=== PATIENT | female | born 1975 | race Caucasian/White ===

== ENCOUNTER 2017-06-12 13:38 | Inpatient (IN) | payer OTHER ==
[~2017-06-12] VITALS: Ht 177.8 cm; Wt 60.6 kg
--- NOTE | ~2017-06-12 | EKG ---
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1975 Requested By: Huy Rodriguez Order Number: [id number] MD: Martín Dow Measurements Intervals [place] Rate: 94 P: 68 KS: 165 QRS: -71 QRSD: 84 T: 118 QT: 421 QTc: 527 Interpretive Statements Sinus rhythm Probable left atrial enlargement Left anterior fascicular block Low voltage, precordial leads Consider right ventricular hypertrophy Nonspecific T abnormalities, lateral leads Electronically Signed On 06-18-2017 13:55:49 CDT by Martín Dow [email or web address] <ELECTRONICALLY SIGNED> By: Martín Dow MD 06/18/17 2690 0944 0944 Martín Dow MD /LACHELLE
--- NOTE | ~2017-06-12 | EKG ---
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1975 Requested By: Huy Rodriguez Order Number: [id number] MD: Javier Paul Measurements Intervals [place] Rate: 92 P: 30 DC: 152 QRS: -71 QRSD: 90 T: QT: 429 QTc: 531 Interpretive Statements Sinus rhythm Left anterior fascicular block Borderline low voltage, extremity leads Abnormal R-wave progression, early transition Probable anteroseptal infarct, old Nonspecific T abnormalities, lateral leads Prolonged QT interval Compared to ECG 06/18/2017 09:44:57 No significant change was found Electronically Signed On 06-19-2017 7:43:31 CDT by Javier Paul [email or web address] <ELECTRONICALLY SIGNED> By: Javier Paul MD, [facility] 06/19/17 0743 0609 0609 Javier Paul MD, FAC /EPI
--- NOTE | ~2017-06-12 | CATHLAB ---
[facility] [employer] [place] [address] INVASIVE PROCEDURE REPORT Name: LAKESHA SHARMA Room #: 216-P DIS IN [facility]#: [id number] Admission: 06/12/17 Attend Phys: Parth Urbina MD Discharge: 06/19/17 Date of : 79 Date of Service: 06/19/17 1720 Report #: [id number] THIS REPORT FOR: //name// APPROVED REPORT Study performed: 06/18/2017 07:01:44 Patient Details Patient Status: In-Patient Room #: The patient is a 41 year-old female Event Personnel Huy Rodriguez Lap Welder, Cynthia Adams RN RN, Cecil Lopez Monitor, Nubia Recinos RTR, TAX MANAGER CPA Scrub Procedures Performed Right and Left Heart Cath w/or w/o Coronarie [id number] [facility] Indication Cardiomyopathy Procedure Narrative The Right Groin^ was infiltrated with 1% Lidocaine subcutaneous anesthesia. A PINNACLE 6FR Sheath #[id number] sheath was inserted into the . Coronary angiography was performed using coronary diagnostic catheters. The right coronary system was accessed and visualized with a JR4 catheter. The left coronary system was accessed and visualized with a JL4 catheter. The left ventricle was accessed and visualized with a PIGTAIL catheter. Left ventriculogram was performed in MATOS and PILY projection. Closure device was deployed with a 6 Fr MYNXGRIP 6/7F #[id number]. There was no hematoma. Intraoperative Conscious Sedation Sedation start time: 7.54 Case end Time: 8.10 Versed 0.5 mg Fluoro Time: 2.25 minutes Dose: 1.43 mGy Contrast Type and Amount: Visipaque 95 ml Hemodynamics The right atrial mean pressure is 17 mmHg. The right ventricular pressure is 40/10 mmHg. The pulmonary artery pressure is 44/17 mmHg [facility] [address] [place] [address] INVASIVE PROCEDURE REPORT Name: LAKESHA SHARMA Room #: 216-P [facility] IN M.R.#: [id number] Admission: 06/12/17 Attend Phys: Parth Urbina MD Discharge: 06/19/17 Date of : 79 Date of Service: 06/19/17 1720 Report #: [id number] with a mean of 29 mmHg. The mean pulmonary capillary wedge pressure is 18 mmHg. The aortic pressure is 86/56 mmHg with a mean of mmHg. The left ventricular pressure is 85/14 mmHg with a mean of mmHg. The left ventricular end diastolic pressure is 29 mmHg. Conclusion #1 left main giving rise to LAD and circumflex #2 LAD extends to the apex with mild irregularities. #3 ostial circumflex lesion of 50% nondominant vessel otherwise well-preserved #4 dominant right coronary artery with no occlusive disease #5 borderline left ventricular dilatation with moderately severe global hypokinesis EF 20% range #6 successful right heart catheterization with mild pulmonary pressure wedge pressure elevation as noted above. Cardiac output cardiac index markedly depressed Recommendations and plan or continue aggressive risk factor modification aggressive volume fluid control sodium restriction continue current medications. Close follow-up is indicated <ELECTRONICALLY SIGNED> By: Huy Rodriguez MD, FACC 06/19/17 172 19 19 Huy Rodriguez MD, FACC /INF
--- NOTE | ~2017-06-12 | 2DMMODE ---
[facility] [address] [employer] [place] [address] 2 D/M-MODE ECHOCARDIOGRAM Name: ZACHARYLAKESHA Room #: 216-P [facility] IN ..#: [id number] Admission: 06/12/17 Attend Phys: Parth Urbina MD Discharge: Date of : 79 Date of Service: 06/18/17 1045 Report #: [id number] THIS REPORT FOR: //name// APPROVED REPORT Study performed: 06/18/2017 09:40:41 EXAM: Comprehensive 2D, Doppler, and color-flow Echocardiogram Patient Location: Bedside Room #: 216 Status: routine BSA: 1.74 HR: 93 bpm BP: 85/56 mmHg Rhythm: NSR/PVCs Other Information Study Quality: Adequate/unable to position patient. On bed rest status post Cath. Indications Short of breath. 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 2D Dimensions RVDd: 40.91 mm LVEF(%): 17.64 (>50%) IVSd: 8.81 (7-11mm) LVOT Diam: 20.08 (18-24mm) LVDd: 56.99 mm PWd: 9.44 (7-11mm) Ascending Ao: 26.46 (22-36mm) LVDs: 52.39 (25-40mm) Aortic Root: 30.63 mm Mcelroy's LVEF: 17.64 % Volumes Left Atrial Volume (Systole) Single Plane 4CH: 62.20 mL Aortic Valve AoV Peak Jose.: 0.86 m/s AO Peak Gr.: 2.99 mmHg LVOT Max P.98 mmHg LVOT Max V: 0.50 m/s ANTONIETA Vmax: 1.81 cm2 Mitral Valve MV Decel. Time: 125.54 ms MV E Max Jose.: 0.81 m/s [facility] [place] [address] 2 D/M-MODE ECHOCARDIOGRAM Name: LAKESHA SHARMA Room #: 216-P [facility] IN .R.#: [id number] Admission: 06/12/17 Attend Phys: Parth Urbina MD Discharge: Date of : 79 Date of Service: 06/18/17 1045 Report #: [id number] Pulmonary Valve PV Peak Jose.: 0.50 m/s PV Peak Gr.: 1.00 mmHg Tricuspid Valve TR Peak Jose.: 2.69 m/s RAP Estimate: 5.00 mmHg TR Peak Gr.: 29.04 mmHg PA Pressure: 34.00 mmHg Left Ventricle Left ventricle is at the upper limits of normal. There is normal left ventricular wall thickness. Left ventricular systolic function is severely decreased. LVEF is 20%. This study is not technically sufficient to allow evaluation of the LV diastolic function. Right Ventricle The right ventricle is normal size. Right ventricle is hypokinetic. Atria Left atrium is mildly dilated. Right atrium is mildly dilated. Aortic Valve Aortic valve is trileaflet. No aortic regurgitation is present. There is no aortic valvular stenosis. Mitral Valve The mitral valve is normal in structure. Mild to moderate mitral regurgitation. Tricuspid Valve The tricuspid valve is normal in structure. Mild to moderate tricuspid regurgitation. Estimated PAP is 35mmHg. Pulmonic Valve The pulmonary valve is normal in structure. Mild pulmonic regurgitation. Great Vessels The aortic root is normal in size. The ascending aorta is normal in size. IVC is normal in size and collapses >50% with inspiration. Pericardium Small pericardial effusion noted. Right pleural effusion [facility] [address] [place] [address] 2 D/M-MODE ECHOCARDIOGRAM Name: LAKESHA SHARMA Room #: 216-P [facility] IN ..#: [id number] Admission: 06/12/17 Attend Phys: Parth Urbina MD Discharge: Date of : 79 Date of Service: 06/18/17 1045 Report #: [id number] noted. <Conclusion> Left ventricle is at the upper limits of normal. Left ventricular systolic function is severely decreased. LVEF is 20%. This study is not technically sufficient to allow evaluation of the LV diastolic function. The right ventricle is normal size. Left atrium is mildly dilated. Right atrium is mildly dilated. Left atrium is mildly dilated. Right atrium is mildly dilated. Aortic valve is trileaflet. Mild to moderate mitral regurgitation. Mild to moderate tricuspid regurgitation. Estimated PAP is 35mmHg. The aortic root is normal in size. Small pericardial effusion noted. <ELECTRONICALLY SIGNED> By: Huy Rodriguez MD, [facility] 06/18/17 1045 1045 1045 Huy Rodriguez MD, FACC /INF
--- NOTE | ~2017-06-12 | EKG ---
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
[2017-06-12 14:10] VITALS: BP 124/94
[2017-06-12 14:16] LABS: ABSOLUTE NEUTROPHILS 7.5 thou/uL (1.4-8.2); BASOPHILS 1.4 % (0.0-2.0); EOSINOPHILS 0.1 % (0.0-3.0); HEMATOCRIT 27.8 % (37.0-47.0); HEMOGLOBIN 8.9 gm/dL (12.0-15.0); MCH 29.7 pg (26.0-34.0); MCHC 31.9 g/dL (28.0-37.0); MCV 93.1 fL (80.0-100.0); MONOCYTES 4.5 % (1.0-8.0); PLATELET COUNT 539 thou/uL (150-400); RBC 2.99 mil/uL (4.20-5.00); RDW 17.6 % (10.5-14.5); WBC 11.5 thou/uL (4.0-11.0)
[2017-06-12] MEDS ORDERED: LOPRESSOR25 PO (14:24)
[2017-06-12] MEDS ORDERED: ASPIR 8181 MG PO (14:24)
[2017-06-12 14:26] LABS: ANION GAP 12 mmol/L (7-16); BUN 21 mg/dL (7-18); CALCIUM 8.5 mg/dL (8.5-10.1); CHLORIDE 100 mmol/L (98-107); CO2 20 mmol/L (21-32); CREATININE 1.3 mg/dL (0.6-1.0); GLUCOSE 107 mg/dL (74-106); SODIUM 132 mmol/L (136-145)
[2017-06-12 14:35] LABS: ALBUMIN 2.6 g/dL (3.4-5.0); SGOT 47 U/L (15-37); SGPT 61 U/L (30-65); TOTAL BILIRUBIN 1.9 mg/dL (<0.1-1.0); TOTAL PROTEIN 6.4 g/dL (6.4-8.2); TROPONIN-I < 0.04 ng/mL (<0.06)
[2017-06-12 15:53] VITALS: BP 128/93
[2017-06-12 17:05] VITALS: BP 112/89
[2017-06-12 20:24] VITALS: BP 99/67
[2017-06-12 23:13] LABS: URINE BILIRUBIN NEGATIVE (Negative); URINE BLOOD NEGATIVE (Negative); URINE CLARITY CLEAR; URINE COLOR YELLOW; URINE GLUCOSE-RANDOM* NEGATIVE (Negative); URINE KETONES NEGATIVE (Negative); URINE LEUKOCYTES-REFLEX TRACE (Negative); URINE NITRITE-REFLEX NEGATIVE (Negative); URINE PROTEIN (DIPSTICK) NEGATIVE (Negative); URINE UROBILINOGEN 0.2 E.U./dl (0.2-1.0)
[2017-06-12 23:22] LABS: AMP/METHAMP Negative (Negative); BARBITURATES Negative (Negative); BENZODIAZEPINES Negative (Negative); COCAINE Negative (Negative); METHADONE Negative (Negative); OPIATES Negative (Negative); PCP Negative (Negative)
[2017-06-13 02:15] VITALS: BP 99/67
[2017-06-13 04:44] LABS: CREATININE 1.3 mg/dL (0.6-1.0); MAGNESIUM 1.5 mg/dL (1.8-2.4)
[2017-06-13 04:45] LABS: BASOPHILS 1.1 % (0.0-2.0); EOSINOPHILS 0.6 % (0.0-3.0); HEMATOCRIT 24.9 % (37.0-47.0); HEMOGLOBIN 8.1 gm/dL (12.0-15.0); MCH 29.7 pg (26.0-34.0); MCHC 32.5 g/dL (28.0-37.0); MCV 91.4 fL (80.0-100.0); MONOCYTES 5.5 % (1.0-8.0); POLYS 53.8 % (36.0-66.0); RBC 2.72 mil/uL (4.20-5.00); WBC 7.5 thou/uL (4.0-11.0)
[2017-06-13 04:56] LABS: POTASSIUM 2.6 mmol/L (3.5-5.1)
[2017-06-13 05:07] LABS: PLATELET COUNT 442 thou/uL (150-400)
[2017-06-13 05:24] VITALS: BP 111/73
[2017-06-13 07:37] VITALS: BP 113/78
[2017-06-13 11:19] VITALS: BP 109/82
[2017-06-13 15:17] VITALS: BP 104/71
[2017-06-13 20:20] VITALS: BP 100/73
[2017-06-14] VITALS (7 sets, daily range): BP systolic 85–103; BP diastolic 58–73
[2017-06-14 05:27] LABS: CREATININE 1.1 mg/dL (0.6-1.0)
[2017-06-14 05:31] LABS: POTASSIUM 3.2 mmol/L (3.5-5.1)
[2017-06-14 05:49] LABS: HEMATOCRIT 24.3 % (37.0-47.0); MCH 29.8 pg (26.0-34.0); MCHC 32.8 g/dL (28.0-37.0); MCV 90.8 fL (80.0-100.0); RBC 2.67 mil/uL (4.20-5.00); RDW 16.9 % (10.5-14.5); WBC 7.5 thou/uL (4.0-11.0)
[2017-06-15] VITALS (7 sets, daily range): BP systolic 85–110; BP diastolic 58–75
[2017-06-15 04:22] LABS: HEMATOCRIT 25.3 % (37.0-47.0); HEMOGLOBIN 8.3 gm/dL (12.0-15.0); MCV 91.1 fL (80.0-100.0); RBC 2.78 mil/uL (4.20-5.00); RDW 16.9 % (10.5-14.5); WBC 8.1 thou/uL (4.0-11.0)
[2017-06-15 04:30] LABS: CALCIUM 7.8 mg/dL (8.5-10.1); CREATININE 1.1 mg/dL (0.6-1.0); POTASSIUM 3.7 mmol/L (3.5-5.1)
[2017-06-16 04:54] VITALS: BP 101/71
[2017-06-16 07:06] LABS: HEMATOCRIT 30.1 % (37.0-47.0); HEMOGLOBIN 10.1 gm/dL (12.0-15.0); MCH 29.9 pg (26.0-34.0); MCHC 33.6 g/dL (28.0-37.0); MCV 89.1 fL (80.0-100.0); RBC 3.38 mil/uL (4.20-5.00); RDW 16.1 % (10.5-14.5); WBC 6.4 thou/uL (4.0-11.0)
[2017-06-16 07:18] LABS: CREATININE 1.1 mg/dL (0.6-1.0)
[2017-06-16 07:21] LABS: POTASSIUM 2.9 mmol/L (3.5-5.1)
[2017-06-16 07:45] VITALS: BP 101/74
[2017-06-16 11:40] VITALS: BP 102/73
[2017-06-16 15:50] VITALS: BP 74/45
[2017-06-16 20:02] VITALS: BP 82/52
[2017-06-17 03:49] LABS: HEMATOCRIT 30.5 % (37.0-47.0); HEMOGLOBIN 9.9 gm/dL (12.0-15.0); MCH 29.4 pg (26.0-34.0); MCHC 32.5 g/dL (28.0-37.0); MCV 90.6 fL (80.0-100.0); RBC 3.37 mil/uL (4.20-5.00); RDW 15.8 % (10.5-14.5); WBC 7.8 thou/uL (4.0-11.0)
[2017-06-17 03:57] LABS: CALCIUM 7.9 mg/dL (8.5-10.1); CREATININE 1.2 mg/dL (0.6-1.0); POTASSIUM 3.9 mmol/L (3.5-5.1)
[2017-06-17 04:34] VITALS: BP 86/58
[2017-06-17 08:20] VITALS: BP 91/64
[2017-06-17 11:30] VITALS: BP 80/54
[2017-06-17 15:20] VITALS: BP 83/57
[2017-06-17 19:27] VITALS: BP 91/59
[2017-06-18] VITALS (16 sets, daily range): BP systolic 71–120; BP diastolic 45–66
[2017-06-18 07:48] LABS: CALCIUM 7.9 mg/dL (8.5-10.1); CREATININE 1.2 mg/dL (0.6-1.0); POTASSIUM 3.9 mmol/L (3.5-5.1)
[2017-06-18 07:59] LABS: APTT 26.1 Seconds (24.5-32.8); INR 1.2
[2017-06-19] VITALS (7 sets, daily range): BP systolic 77–85; BP diastolic 49–60
[2017-06-19 06:02] LABS: HEMATOCRIT 30.7 % (37.0-47.0); MCH 29.3 pg (26.0-34.0); MCHC 32.7 g/dL (28.0-37.0); MCV 89.6 fL (80.0-100.0); RBC 3.43 mil/uL (4.20-5.00); RDW 16.1 % (10.5-14.5); WBC 7.2 thou/uL (4.0-11.0)
[2017-06-19 06:17] LABS: CREATININE 1.2 mg/dL (0.6-1.0)
[2017-06-19] MEDS ORDERED: CORLANOR5 MG PO (10:47)
[2017-06-19] MEDS ORDERED: COREG6.25 MG PO (10:47)
[2017-06-19] MEDS ORDERED: LISINOPRIL2.5 MG PO (10:48)
[2017-06-19] MEDS ORDERED: SPIRONOLACTONE25 M1 PO (10:48)
[2017-06-19] MEDS ORDERED: LASIX 20 MG TAB20 MG PO (10:48)
== END 2017-06-19 14:19 | disposition home health service (06) | DRG 286 ==
LOC: ER 13:38 → 2N 14:59 → EROBS 14:59 → 2N 16:35 → ENTRNSPT 06-19 13:41 → EDTRNSPTSTS 06-19 13:45 → 2N 06-19 14:19
PROVIDERS: Emergency Medicine; Hospitalist; Internal Medicine Cardiovascular Disease; Nurse Practitioner; Nurse Practitioner Gerontology
DX: I50.23 Acute on chronic systolic (congestive) heart failure (principal); E43 Unspecified severe protein-calorie malnutrition; N17.9 Acute kidney failure, unspecified; I42.9 Cardiomyopathy, unspecified; E46 Unspecified protein-calorie malnutrition; E87.6 Hypokalemia; E83.42 Hypomagnesemia; I08.1 Rheumatic disorders of both mitral and tricuspid valves; I25.10 Atherosclerotic heart disease of native coronary artery without angina pectoris; F10.10 Alcohol abuse, uncomplicated; F41.9 Anxiety disorder, unspecified; D69.6 Thrombocytopenia, unspecified; D64.9 Anemia, unspecified; Z79.82 Long term (current) use of aspirin; Z79.899 Other long term (current) drug therapy; Z90.49 Acquired absence of other specified parts of digestive tract; Z82.49 Family history of ischemic heart disease and other diseases of the circulatory system
CPT/HCPCS: 10081

== ENCOUNTER → 2017-11-02 | Outpatient (CLI) | payer OTHER ==
[~2017-11-02] MED LIST: ASPIR 8181 MG PO; COREG6.25 MG PO; CORLANOR5 MG PO; LASIX 20 MG TAB20 MG PO; LISINOPRIL2.5 MG PO; LOPRESSOR25 PO; SPIRONOLACTONE25 M1 PO
--- NOTE | ~2017-11-02 | 2DMMODE ---
[facility] [place] [place] [address] 2 D/M-MODE ECHOCARDIOGRAM Name: ZACHARYLAKESHA STEVE Room #: REG CL [facility]#: [id number] Admission: 11/02/17 Attend Phys: Huy Rodriguez, Discharge: Date of : 79 Date of Service: 11/02/17 1212 Report #: [id number] THIS REPORT FOR: //name// APPROVED REPORT Study performed: 11/02/2017 11:04:44 EXAM: Limited 2D Echocardiogram Patient Location: Out-Patient Status: routine BSA: 1.69 HR: 65 bpm BP: 102/68 mmHg Rhythm: NSR Other Information Study Quality: Adequate Indications Limited follow up echo for LV function, cardiomyopathy. (Last echo done 08/06/17 with an EF of 30-35%) 2D Dimensions IVSd: 7.83 (7-11mm) LVDd: 52.44 mm PWd: 6.83 (7-11mm) LVDs: 40.81 (25-40mm) Aortic Root: 31.05 mm Tricuspid Valve RAP Estimate: 5.00 mmHg Left Ventricle The left ventricle is normal size. Regional wall motion abnormalities are noted. There is normal left ventricular wall thickness. Left ventricular systolic function is moderately decreased. LVEF is 35%. Atria The left atrium size is normal. The right atrium size is normal. Aortic Valve The aortic valve is normal in structure. [facility] [address] [place] [address] 2 D/M-MODE ECHOCARDIOGRAM Name: LAKESHA SHARMA [facility] [id number] Admission: 11/02/17 Attend Phys: Huy Rodriguez, Discharge: Date of : 79 Date of Service: 11/02/17 121 Report #: [id number] Mitral Valve The mitral valve is normal in structure. Tricuspid Valve The tricuspid valve is normal in structure. Pulmonic Valve The pulmonary valve is normal in structure. Great Vessels IVC is normal in size and collapses >50% with inspiration. Pericardium There is no pericardial effusion. <Conclusion> The left ventricle is normal size. LVEF is 35%. Regional wall motion abnormalities are noted. The aortic valve is normal in structure. The mitral valve is normal in structure. The tricuspid valve is normal in structure. The pulmonary valve is normal in structure. There is no pericardial effusion. <ELECTRONICALLY SIGNED> By: Jl Galvez MD 11/02/171211 11 11 Jl Galvez MD /INF
== END ==
LOC: CV 11-01 07:25
DX: I42.9 Cardiomyopathy, unspecified (principal); I36.1 Nonrheumatic tricuspid (valve) insufficiency

== ENCOUNTER → 2020-05-13 | Outpatient (CLI) | payer OTHER | LOC: SJCVCIMAG 09:02 | PROVIDERS: ATTEND Internal Medicine Cardiovascular Disease | DX: R94.31 Abnormal electrocardiogram [ECG] [EKG] (principal); I42.9 Cardiomyopathy, unspecified; I25.10 Atherosclerotic heart disease of native coronary artery without angina pectoris; I10 Essential (primary) hypertension; E78.00 Pure hypercholesterolemia, unspecified; I50.23 Acute on chronic systolic (congestive) heart failure; F41.9 Anxiety disorder, unspecified; N19 Unspecified kidney failure; K72.90 Hepatic failure, unspecified without coma; J96.90 Respiratory failure, unspecified, unspecified whether with hypoxia or hypercapnia; I50.9 Heart failure, unspecified; I36.1 Nonrheumatic tricuspid (valve) insufficiency; Z88.0 Allergy status to penicillin; Z88.8 Allergy status to other drugs, medicaments and biological substances; Z79.899 Other long term (current) drug therapy; Z79.82 Long term (current) use of aspirin ==